=== PATIENT | female | born 1980 | race Caucasian/White ===

== ENCOUNTER 2017-06-09 06:29 | Emergency (ER) | payer BC, OTHER ==
[2017-06-09] MEDS: SODIUM CHLORIDE 0.9% FLUSH 10 ML SOL IV PRN ×3 (06:38→07:32)
[2017-06-09] MEDS ORDERED: ONDANSETRON HCL 4 MG/2 ML SOL IV ONE (06:43)
[2017-06-09] MEDS ORDERED: ONDANSETRON HCL 4 MG/2 ML SOL ONE (06:44)
[2017-06-09 07:10] LABS: BASOPHILS % (AUTO) 0 % (0-3); EOSINOPHILS % (AUTO) 2 % (0-9); HEMATOCRIT 43 % (35-47); MEAN CORPUSCULAR HGB CONC 33.5 gm/dl (32.0-36.0); MEAN CORPUSCULAR VOLUME 85 fL (81-99); MONOCYTES % (AUTO) 4.2 % (0-12); NEUTROPHILS % (AUTO) 90.2 % (37-80)
[2017-06-09] MEDS ORDERED: KETOROLAC TROMETHAMINE 30 MG/ML SOL IV ONE (07:12)
[2017-06-09] MEDS ORDERED: KETOROLAC TROMETHAMINE 30 MG/ML SOL ONE (07:15)
[2017-06-09] MEDS ORDERED: METOCLOPRAMIDE HYDROCHLORIDE 5 MG/ML SOL IV ONE (07:23)
[2017-06-09] MEDS ORDERED: METOCLOPRAMIDE HYDROCHLORIDE 5 MG/ML SOL ONE (07:24)
[2017-06-09 07:30] LABS: CALCIUM 8.3 mg/dl (8.5-10.1); GLOM FILT RATE 71 mL/min (>60); POTASSIUM 4.2 mMol/L (3.5-5.1); SODIUM 143 mMol/L (136-145)
[2017-06-09 07:33] VITALS: TEMP 98.8
[2017-06-09 08:06] VITALS: BP 111/75; PULSE 114; RESP 18; O2SAT 97
== END 2017-06-09 08:00 | disposition home or self-care (01) ==
LOC: ED 06:29
DX: R07.9 Chest pain, unspecified (principal); R11.2 Nausea with vomiting, unspecified; R19.7 Diarrhea, unspecified; R00.0 Tachycardia, unspecified
CPT/HCPCS: 80048; 82550; 84484; 84703; 85025; 85378; 85610; 85730; 93005; 99285; J1885; J2405; J2765